=== PATIENT | female | born 1980 | race Caucasian/White ===

== ENCOUNTER 2017-03-20 11:28 | Emergency (ER) | payer SELFPAY ==
[~2017-03-20] VITALS: Ht 154.9 cm; Wt 81.5 kg
[2017-03-20 13:41] VITALS: BP 125/72
== END 2017-03-20 14:17 | disposition home or self-care (01) ==
LOC: EMS 11:30
DX: M54.12 Radiculopathy, cervical region (principal); R20.9 Unspecified disturbances of skin sensation; R51 Headache
CPT/HCPCS: 99281